=== PATIENT | female | born 1970 | race Caucasian/White ===

== ENCOUNTER → 2018-12-26 | Outpatient (CLI) | payer BC ==
[2018-12-26 08:46] LABS: Basophils # (A) 0.1 k/uL (0-0.2); Basophils % (A) 1 %; Eosinophils # (A) 0.2 k/uL (0-0.7); Eosinophils % (A) 4 %; HCT 40.1 % (34.0-46.0); HGB 13.4 gm/dL (11.4-16.0); Lymphocytes # (A) 2.1 k/uL (1.0-4.8); Lymphocytes % (A) 34 %; MCH 31.4 pg (25.0-35.0); MCHC 33.5 g/dL (31.0-37.0); MCV 93.6 fL (80.0-100.0); Mean Platelet Volume 7.9; Monocytes # (A) 0.4 k/uL (0-1.0); Monocytes % (A) 6 %; Neutrophils # (A) 3.2 k/uL (1.3-7.7); Neutrophils % (A) 52 %; Platelet Count 289 k/uL (150-450); RBC 4.28 m/uL (3.80-5.40); WBC 6.2 k/uL (3.8-10.6)
[2018-12-26 16:49] LABS: Rheumatoid Factor 8 IU/mL (0-15)
[2018-12-26 16:59] LABS: Immunoglobulin E 4.18 IU/mL (0.00-114.00)
[2018-12-26 17:44] LABS: Albumin 4.5 g/dL (3.80-4.90); Albumin/Globulin Ratio 2.14 (1.60-3.17); Anion Gap 11.3 mmol/L (4.00-12.00); Calcium 9.4 mg/dL (8.7-10.3); Carbon Dioxide 23.7 mmol/L (21.6-31.8); Globulin 2.1 g/dL (1.6-3.3); Potassium 4.2 mmol/L (3.5-5.5); Total Bilirubin 0.3 mg/dL (0.2-1.2); Total Protein 6.6 g/dL (6.2-8.2); Uric Acid 10.2 mg/dL (2.9-7.7)
[2018-12-26 18:21] LABS: Hemoglobin A1C 6.1 % (4.0-6.0)
[2018-12-26 20:47] LABS: Gliadin AB IgA, Unit 0.6 U/mL
== END | disposition home or self-care (01) ==
LOC: LABWHC1 08:18
PROVIDERS: ATTEND Family Medicine
DX: I10 Essential (primary) hypertension (principal); B89 Unspecified parasitic disease; Z79.899 Other long term (current) drug therapy
CPT/HCPCS: 36415; 80053; 82785; 83036; 83516; 84443; 84550; 85025; 86200; 86431

== ENCOUNTER → 2019-07-10 | Outpatient (CLI) | payer BC ==
[2019-07-10 12:29] LABS: Cyclic Citrull Pep IgG Unit <0.5 U/mL; Cyclic Citrullinated Pep IgG NEGATIVE (NEGATIVE)
[2019-07-10 14:04] LABS: C Reactive Protein 0.5 mg/dL (0.0-0.8); Uric Acid 9.9 mg/dL (2.9-7.7)
== END | disposition home or self-care (01) ==
LOC: LABWHC1 07:46
PROVIDERS: ATTEND Family Medicine
DX: I10 Essential (primary) hypertension (principal); Z79.899 Other long term (current) drug therapy
CPT/HCPCS: 36415; 84550; 85652; 86140; 86200; 86431

== ENCOUNTER → 2022-12-11 | Outpatient (CLI) | payer BC ==
[2022-12-11 15:40] LABS: HGB 10.6 g/dL (12.0-15.0); MCHC 31.2 g/dL (32.0-37.0); MCV 105.9 fL (80.0-97.0); Mean Platelet Volume 9.5 fL (9.5-12.2); NRBC Per 100 WBC 0 /100 WBCS (0.0-0.0); Platelet Count 325 X 10*3/uL (140-440); RBC 3.21 X 10*6/uL (4.10-5.20); RDW 12.6 % (11.5-14.5); WBC 3.98 X 10*3/uL (4.50-10.00)
[2022-12-11 16:09] LABS: African American GFR (CKD) 120.8 (60.0-200.0); Albumin 4.1 g/dL (3.8-4.9); Albumin/Globulin Ratio 1.77 (1.60-3.17); Anion Gap 9.2 mmol/L (10.00-18.00); BUN/Creat Ratio 29.65 Ratio (12.00-20.00); Blood Urea Nitrogen 18.5 mg/dL (9.0-27.0); Calcium 9.7 mg/dL (8.7-10.3); Carbon Dioxide 29.2 mmol/L (20.0-27.5); Globulin 2.3 g/dL (1.6-3.3); Non-African American GFR(CKD) 104.2 (60.0-200.0); T4, Free (Free Thyroxine) 0.92 ng/dL (0.800-1.800); Total Bilirubin 0.2 mg/dL (0.30-1.20); Total Protein 6.4 g/dL (6.2-8.2)
[2022-12-11 16:23] LABS: Basophils # (A) 0.06 X 10*3/uL (0.00-0.10); Basophils % (A) 1.5 %; Eosinophils # (A) 0.17 X 10*3/uL (0.04-0.35); Eosinophils % (A) 4.3 %; Immature Grans, Automated 0.3 %; Lymphocytes # (A) 1.07 X 10*3/uL (0.90-5.00); Lymphocytes % (A) 26.9 %; Monocytes # (A) 0.42 X 10*3/uL (0.20-1.00); Monocytes % (A) 10.6 %; Neutrophils # (A) 2.25 X 10*3/uL (1.80-7.70); Neutrophils % (A) 56.4 %
[2022-12-11 16:24] LABS: RBC Morphology NORMAL
== END | disposition home or self-care (01) ==
LOC: LABWHC1 08:33
PROVIDERS: ATTEND Internal Medicine
DX: E10.43 Type 1 diabetes mellitus with diabetic autonomic (poly)neuropathy (principal); D64.9 Anemia, unspecified; F41.9 Anxiety disorder, unspecified; R60.0 Localized edema
CPT/HCPCS: 36415; 80053; 83880; 84439; 84443; 85025